=== PATIENT | female | born 1955 | race Caucasian/White ===

== ENCOUNTER 2023-01-09 10:06 | Emergency (ER) | payer MEDICARE ==
[2023-01-09] MEDS ORDERED: Sodium Chloride 0.9% 1,000 ML IV ONE (10:31)
[2023-01-09] MEDS ORDERED: Atropine/Diphenoxylate 0.025-2.5 MG/5 ML Soln 60 ML Bottle PO ONE (10:34)
[2023-01-09 10:55] LABS: BASOPHILS ABSOLUTE AUTO 0.05 K/uL (0.02-0.10); BASOPHILS PERCENT AUTO 0.6 % (0.0-0.5); EOSINOPHILS ABSOLUTE AUTO 0.17 K/uL (0.04-0.40); EOSINOPHILS PERCENT AUTO 2.1 % (1.0-5.0); HEMATOCRIT 41.9 % (37.0-47.0); HEMOGLOBIN 13.9 g/dL (11.5-16.5); LYMPHOCYTES ABSOLUTE AUTO 1.65 K/uL (1.50-4.00); LYMPHOCYTES PERCENT AUTO 20.1 % (20.0-40.0); MEAN CORPUSCULAR HEMOGLOBIN 26.3 pg (27.0-32.0); MEAN CORPUSCULAR HGB CONC 33.2 g/dL (31.0-35.0); MEAN CORPUSCULAR VOLUME 79 fL (76-96); MEAN PLATELET VOLUME 11.9 fL (6.0-10.0); MONOCYTES ABSOLUTE AUTO 0.64 K/uL (0.20-0.80); MONOCYTES PERCENT AUTO 7.8 % (3.0-10.0); NEUTROPHILS PERCENT AUTO 69.4 % (45.0-70.0); PLATELET COUNT,PLT 92 K/uL (150-500); RED BLOOD CELL COUNT 5.28 M/uL (3.80-5.80); RED CELL DISTRIBUTION WIDTH 13.5 % (11.0-16.0); WHITE BLOOD CELL COUNT,WBC 8.2 K/uL (4.0-11.0)
[2023-01-09] MEDS ORDERED: Sodium Chloride 0.9% 10 ML Syringe FLUSH PRN (11:02)
[2023-01-09 11:05] LABS: APPEARANCE,URINE CLEAR (CLEAR); BILIRUBIN,URINE NEGATIVE (NEGATIVE); COLOR,URINE YELLOW; GLUCOSE,URINE NEGATIVE (NEGATIVE); KETONES,URINE NEGATIVE (NEGATIVE); LEUKOCYTE ESTERASE,URINE NEGATIVE (NEGATIVE); NITRITE,URINE NEGATIVE (NEGATIVE); OCCULT BLOOD,URINE NEGATIVE (NEGATIVE); PH,URINE 5.5 (5.0-8.0); PROTEIN,URINE NEGATIVE (NEGATIVE); UROBILINOGEN,URINE 0.2 E.U./dL (0.2-1.0)
[2023-01-09 11:06] LABS: RBC,URINE NOT SEEN /HPF
[2023-01-09 11:07] LABS: EPITHELIAL CELLS,URINE RARE /HPF; WBC,URINE NOT SEEN /HPF
[2023-01-09 11:11] LABS: A/G RATIO 1.1 (0.8-2.0); ALBUMIN 3.8 g/dL (3.4-5.0); ANION GAP 16.4 mmol/L (5.0-15.0); BILIRUBIN TOTAL 0.7 mg/dL (0.0-1.0); BUN/CREATININE RATIO 16.7 (6-25); CALCIUM 9.1 mg/dL (8.5-10.1); CARBON DIOXIDE,CO2 27.1 mmol/L (21.0-32.0); CREATININE 0.78 mg/dL (0.55-1.02); EST CRCL DRUG DOSING (CG) 60.86 mL/min; POTASSIUM,K 3.5 mmol/L (3.5-5.1); PROTEIN TOTAL,TP 7.4 g/dL (6.4-8.2)
[2023-01-09] MEDS ORDERED: Loperamide 2 MG Cap ONE (11:57)
[2023-01-09] MEDS ORDERED: Loperamide 2 MG Cap PO ONE (12:04)
== END 2023-01-09 12:45 | disposition home or self-care (01) ==
LOC: LB.ED 10:06
DX: K52.9 Noninfective gastroenteritis and colitis, unspecified (principal); Z91.041 Radiographic dye allergy status; Z88.1 Allergy status to other antibiotic agents; Z88.0 Allergy status to penicillin
CPT/HCPCS: 36415; 80053; 81001; 83690; 85025; 96360; 99284; A9270; J7030